=== PATIENT | female | born 1975 | race Caucasian/White ===

== ENCOUNTER 2019-11-19 13:00 | Outpatient (RCR) | payer OTHER | END 2019-12-21 11:38 | disposition home or self-care (01) | LOC: WSPT 13:00 | DX: M43.16 Spondylolisthesis, lumbar region (principal) ==

== ENCOUNTER 2021-05-18 09:00 | Outpatient (RCR) | payer OTHER | END 2021-05-22 | disposition home or self-care (01) | LOC: WSPT | DX: M43.16 Spondylolisthesis, lumbar region (principal); M48.062 Spinal stenosis, lumbar region with neurogenic claudication; M48.07 Spinal stenosis, lumbosacral region; M51.36 Other intervertebral disc degeneration, lumbar region; Z98.1 Arthrodesis status ==